=== PATIENT | female | born 1975 | race Caucasian/White ===

== ENCOUNTER 2016-08-22 09:24 | Emergency (ER) | payer MEDICAID, SELFPAY ==
--- NOTE | 2016-08-22 20:48 | RAD ---
LEFT ANKLE THREE VIEWS 08/22/16 No fracture was seen. All bony structures appeared intact. There is a little ossification at the ins ertion of the Achilles tendon on the calcaneus. The articular surfaces are smooth. IMPRESSION: No acute findings. POS: HOME
== END 2016-08-22 09:56 ==
LOC: BURERS 09:24
DX: S93.402A Sprain of unspecified ligament of left ankle, initial encounter (principal); F17.210 Nicotine dependence, cigarettes, uncomplicated; W22.8XXA Striking against or struck by other objects, initial encounter

== ENCOUNTER 2020-03-08 14:18 | Emergency (ER) | payer SELFPAY ==
[2020-03-08] MEDS ORDERED: Morphine 4 MG/ML VIAL ONE (14:31)
[2020-03-08] MEDS ORDERED: Ondansetron PF 4 MG/2 ML Vial ONE (14:31)
[2020-03-08 14:47] LABS: #Basophils 0.1 thou/uL (0.0-0.2); #Eosinphils 0.1 thou/uL (0.0-0.7); #Lymphocytes 2.7 thou/uL (1.20-3.40); #Monocytes 0.8 thou/uL (0.11-0.59); #Neutrophils 11.8 thou/uL (1.40-6.50); %Basophils 0.6 % (0.0-1.0); %Eosinophils 0.5 % (0.0-10.0); %Lymphocytes 17.5 % (21.0-51.0); %Neutrophils 76.4 % (42.0-75.0); Hemoglobin 16.2 g/dL (12.0-16.0); Mean Corpuscular HGB CONC 33.2 g/dL (32.0-36.0); Mean Corpuscular Hemoglobin 31.3 pg (27.0-31.0); Mean Corpuscular Volume 94.2 fL (78.0-98.0); Mean Platelet Volume 8.8 fL (7.4-10.4); Platelet Count 298 thou/uL (130-400); RBC Distribution Width 11.3 % (11.5-14.5); Red Blood Cell (RBC) Count 5.17 mill/uL (4.20-5.40); White Blood Cell (WBC) Count 15.4 thou/uL (4.8-10.8)
[2020-03-08] MEDS ORDERED: Lorazepam 2 MG/ML VIAL ONE (14:55)
[2020-03-08] MEDS ORDERED: Iopamidol 370 76% 100 ML VIAL ONE (15:05)
[2020-03-08 15:06] LABS: ALT (SGPT) 22 U/L (8-55); AST (SGOT) 15 U/L (5-34); Albumin 4.1 g/dL (3.5-5.0); Alcohol Less than 10 mg/dL (Less than 10); Alkaline Phosphatase 58 U/L (40-110); Anion Gap 15 mmol/L (10-20); BUN (Urea Nitrogen) 12 mg/dL (7.0-18.7); Bilirubin, Total 0.4 mg/dL (0.2-1.2); Calc. Creatinine Clearance 0 mL/min (70-130); Calcium 9.6 mg/dL (7.8-10.44); Carbon Dioxide 25 mmol/L (22-29); Chloride 101 mmol/L (98-107); Globulin 2.8 g/dL (2.4-3.5); Glucose 106 mg/dL (70-105); Potassium 3.8 mmol/L (3.5-5.1); Protein, Total 6.9 g/dL (6.0-8.3); Sodium 137 mmol/L (136-145)
[2020-03-08 15:12] LABS: Bilirubin Negative (Negative); Blood, Urine Small (Negative); Clarity Cloudy (Clear); Glucose, Urine (Dipstick) Negative (Negative); Ketone, Urine Trace mg/dL (Negative); Leukocyte Small (Negative); Nitrite Negative (Negative); Protein, Urine (Dipstick) Negative (Neg-Trace); Urobilinogen 0.2 mg/dL (Less than 2)
[2020-03-08 15:13] LABS: Pregnancy Test - Urine (BHCG) Negative (Negative); Pregu Control Background? CLEAR/WHITE (CLR/WHITE); Pregu Control Bar Appear? YES (CONTROL BAR)
[2020-03-08 15:16] LABS: Squamous Epithelial 0-3 HPF (0-3)
[2020-03-08 15:17] LABS: Bacteria/HPF 1+ HPF (None Seen)
[2020-03-08 15:22] LABS: Methamphetamine Detected (NotDetected); Opiate Screen Detected (NotDetected); THC/Cannabinoid Screen Detected (NotDetected)
[2020-03-08 15:23] LABS: Amphetamine Detected (NotDetected); Barbiturates Screen Not Detected (NotDetected); Benzodiazepine Screen Not Detected (NotDetected); Cocaine Metabolite Screen Not Detected (NotDetected); Medtox Control Line Valid? VALID (VALID); Methadone Not Detected (NotDetected); Oxycodone Screen Not Detected (NotDetected); Phencyclidine (PCP) Not Detected (NotDetected); Tricyclic Screen Not Detected (NotDetected)
[2020-03-08] MEDS ORDERED: Sodium Chloride 0.9% 100 ML ONE ×2 (15:58→15:59)
[2020-03-08] MEDS ORDERED: Piperacillin/Tazobactam 4.5 GM VIAL ONE (15:58)
--- NOTE | 2020-03-08 16:27 | CT ---
CT ABDOMEN AND PELVIS WITH CONTRAST: 03/08/[address] of the abdomen and pelvis was performed for evaluation of right lower quadrant pain. The lung bases are clear. The liver is normal in size, however, there is a 3.6 cm low density mass in the posterior right lobe that has peripheral enhancement to it. It is almost certainly a hemangioma, though a dedicated study would be needed to confirm it. There is a similar smaller finding in the le ft lobe that is 1.4 cm in size that is more indeterminate. The spleen, pancreas, gallbladder, adrenal glands, kidneys and abdominal aorta were all unremarkable. The bowel shows no inflammatory change around it, wall thickening or dilation. There is no free air o r free fluid. The major finding in the study can be seen in the CT of the pelvis. There is a large midline cystic s tructure in the pelvis that is about 9.6 cm wide and 8.6 cm high. It sits just above the urinary blad viet and anterior to the uterus. The most likely diagnosis is a large ovarian cyst, and I understand t he patient does have a history of ovarian cysts removals. Mesenteric cysts would be another entity in the differential diagnosis. There is no inflammatory change or free fluid seen around it. No inflamm atory changes or fluid are seen anywhere in the pelvis. IMPRESSION: 1. Large midline pelvic cyst, presumably ovarian in nature. Ultrasound and gynecological follow- up recommended. 2. 3.6 cm mass, right lobe of the liver, with peripheral enhancement. Highly likely to be a ant ngioma. This could be evaluated in the future with a dedicated CT or MRI. A similar finding in the le ft lobe, though smaller, was noted. 3. Preliminary report discussed with Dr. Patel at 1550 on 03/08/20. POS: HOME
[2020-03-08 16:40] LABS: Lactic Acid 1.6 mmol/L (0.5-2.2)
== END 2020-03-08 16:43 | disposition home or self-care (01) ==
LOC: BURERS 14:18
DX: N83.201 Unspecified ovarian cyst, right side (principal); F15.10 Other stimulant abuse, uncomplicated; F17.210 Nicotine dependence, cigarettes, uncomplicated
CPT/HCPCS: 36415; 74177; 80053; 80306; 80307; 81003; 81015; 81025; 83605; 85025; 87040; 96365; 96375; 99406; J2060; J2270; J2405; J2543; J3490; Q9967

== ENCOUNTER 2020-11-26 13:09 | Emergency (ER) | payer SELFPAY ==
[2020-11-26] MEDS ORDERED: Cephalexin 250 MG CAP ONE (13:39)
== END 2020-11-26 13:41 | disposition home or self-care (01) ==
LOC: BURERS 13:09
DX: L03.116 Cellulitis of left lower limb (principal); F17.210 Nicotine dependence, cigarettes, uncomplicated
CPT/HCPCS: 99283

== ENCOUNTER 2022-08-03 10:02 | Emergency (ER) | payer SELFPAY | END 2022-08-03 10:48 | disposition home or self-care (01) | LOC: BURERS 10:02 | DX: S50.02XA Contusion of left elbow, initial encounter (principal); W23.0XXA Caught, crushed, jammed, or pinched between moving objects, initial encounter ==

== ENCOUNTER 2022-08-11 15:50 | Emergency (ER) | payer SELFPAY | END 2022-08-11 16:18 | disposition left against medical advice (07) | LOC: BURERS 15:50 | DX: L03.115 Cellulitis of right lower limb (principal); F17.210 Nicotine dependence, cigarettes, uncomplicated | CPT/HCPCS: 99283 ==

== ENCOUNTER 2023-12-16 17:14 | Emergency (ER) | payer SELFPAY ==
[~2023-12-16 17:14] MED LIST: Iopamidol 370 76% 100 ML VIAL ONE
[2023-12-16] MEDS ORDERED: Morphine 4 MG/ML VIAL ONE (17:33)
[2023-12-16] MEDS ORDERED: Lorazepam 2 MG/ML VIAL ONE ×2 (17:33→18:04)
[2023-12-16] MEDS ORDERED: Ondansetron PF 4 MG/2 ML Vial ONE ×2 (17:33)
[2023-12-16] MEDS ORDERED: Ketorolac Tromethamine 30 MG (1 mL) VIAL ONE (17:52)
[2023-12-16 17:56] LABS: #Basophils 0.1 thou/uL (0.0-0.2); #Eosinphils 0.2 thou/uL (0.0-0.7); #Lymphocytes 4.8 thou/uL (1.20-3.40); #Monocytes 0.9 thou/uL (0.11-0.59); %Eosinophils 1.4 % (0.0-10.0); %Lymphocytes 39.8 % (21.0-51.0); %Monocytes 7.5 % (0.0-10.0); %Neutrophils 50.4 % (42.0-75.0); Hematocrit 44.9 % (36.0-47.0); Mean Corpuscular HGB CONC 35.6 g/dL (32.0-36.0); Mean Corpuscular Hemoglobin 30.9 pg (27.0-31.0); Mean Corpuscular Volume 86.9 fl (78.0-98.0); Mean Platelet Volume 7.3 fL (7.4-10.4); Platelet Count 302 10x3/uL (130-400); RBC Distribution Width 10.7 % (11.5-14.5); Red Blood Cell (RBC) Count 5.17 mill/uL (4.20-5.40)
[2023-12-16 18:15] LABS: ALT (SGPT) 25 U/L (8-55); AST (SGOT) 18 U/L (5-34); Albumin 4.4 g/dL (3.5-5.0); Alkaline Phosphatase 72 U/L (40-110); Anion Gap 16 mmol/L (10-20); BUN (Urea Nitrogen) 16 mg/dL (7.0-18.7); Bilirubin, Total 0.5 mg/dL (0.2-1.2); Calc. Creatinine Clearance 0 mL/min (70-130); Calcium 10.7 mg/dL (7.8-10.44); Carbon Dioxide 22 mmol/L (22-29); Chloride 105 mmol/L (98-107); Estimated GFR 82; Globulin 3.3 g/dL (2.4-3.5); Glucose 114 mg/dL (70-105); Lipase 12 U/L (8-78); Potassium 3.4 mmol/L (3.5-5.1); Protein, Total 7.7 g/dL (6.0-8.3); Sodium 140 mmol/L (136-145)
[2023-12-16] MEDS ORDERED: Morphine 2 MG/ML VIAL ONE (20:22)
== END 2023-12-16 20:20 | disposition short-term general hospital (02) ==
LOC: BURERS 17:14
DX: N83.202 Unspecified ovarian cyst, left side (principal); R10.84 Generalized abdominal pain; F17.210 Nicotine dependence, cigarettes, uncomplicated
CPT/HCPCS: 36415; 74177; 80053; 83605; 83690; 85025; 96374; 96375; 96376; J1885; J2060; J2272; J2405; Q9967